=== PATIENT | female | born 1995 | race African-American/Black ===

== ENCOUNTER 2016-05-19 11:11 | Emergency (ER) | payer OTHER ==
[~2016-05-19] VITALS: Ht 165.1 cm; Wt 90.7 kg
[~2016-05-19 11:11] MED LIST: ACID CONTROL150 MG ORAL; ANUSOL HC1 SUPP RECTAL; COLACE100 MG ORAL; METRONIDAZOLE500 MG ORAL; NITROFURANTOIN100 M2 ORAL; RANITIDINE HCL150 MG ORAL; TAMIFLU75 MG ORAL; ZOFRAN4 MG ORAL
[2016-05-19] MEDS ORDERED: NKM (11:25)
[2016-05-19 16:00] VITALS: BP 120/80
[2016-05-19] MEDS ORDERED: KEFLEX500 MG ORAL (16:42)
[2016-05-19 16:45] VITALS: BP 120/80
--- NOTE | 2016-05-19 16:48 | Emergency Room Report ---
History of Present Illness General Chief Complaint: General Complaint Source: Patient Present Illness HPI Patient is a 21-year-old female presented after increased pain and swelling to her right breast. Patient was noted to have a several days of increased pain which are began to the lower aspect of her right breast. The patient any fever. The patient denied any recent trauma or fever. She is denies being . Allergies: Uncoded Allergies: NUTS (Allergy, Unknown, 04/14/15) Patient History Past Medical History: see triage record Last Menstrual Period: on period Reviewed Nursing Documentation: PMH: Agreed, PSxH: Agreed Nursing Documentation-PMH Past Medical History: No History, Except For Hx Cardiac Problems: No Hx Hypertension: No Hx Pacemaker: No Hx Asthma: No Hx COPD: No Hx Diabetes: No Hx Cancer: No Hx Gastrointestinal Problems: Yes - IBS Hx Dialysis: No Hx Neurological Problems: Yes - eplipsy Hx Cerebrovascular Accident: No Hx Seizures: Yes Review of Systems All Other Systems: negative except mentioned in HPI Physical Exam Vital Signs Date Time Temp Pulse Resp B/P Pulse Ox O2 Delivery O2 Flow Rate FiO2 05/19/16 11:21 98.2 54 14 117/81 99 Room Air General Appearance: well appearing, no apparent distress, alert, GCS 15 Head: normocephalic, atraumatic ENT: hearing grossly normal, normal voice Neck: full range of motion, supple Respiratory: no respiratory distress, speaking full sentences Cardiovascular #1: normal inspection, regular rate, rhythm Gastrointestinal: normal inspection, normal bowel sounds, non tender Musculoskeletal: normal inspection, back normal, digits/nails normal, no calf tenderness Neurologic: normal inspection, alert, oriented x3, normal gait Psychiatric: mood/affect normal Skin: other - lesion to lower aspect of right breast. ' Medical Decision Making Diagnostic Impression: Primary Impression: Breast lesion ER Course Patient presented for breast lesion. Differential diagnosis included wasn't limited to abscess, fibrocystic changes, breast cancer, keloid, hidradenitis among others. Because of complexity of patient's case laboratory testing and imaging studies were ordered. The patient noted that not to be . The breast ultrasound was ordered the breast was noted to have a solid-appearing lesion which appeared to require further workup. Patient was given prescription for oral antibiotics. The patient was advised followup with primary care physician for general surgery referral for further evaluation of breast mass.The patient is advised to follow up with primary care doctor in 1-2 days. Patient is advised to return if any worsening condition or if any changes in status that are concerning. Last Vital Signs Date Time Temp Pulse Resp B/P Pulse Ox O2 Delivery O2 Flow Rate FiO2 05/19/16 11:21 98.2 54 14 117/81 99 Room Air Status: unchanged Disposition: HOME, SELF-CARE Condition: Stable Scripts Cephalexin* (KEFLEX*) 500 Mg Capsule 500 MG ORAL Q6H, #28 CAP 0 Refills Prov: Riaz Levin 05/19/16 Referrals: NON PHYSICIAN (PCP) primary care physician Patient Instructions: Breast Tenderness Riaz Levin May 19, 2016 16:48
--- NOTE | 2016-05-19 17:43 | Diagnostic Imaging Report ---
Indication: PAIN, palpable abnormality right breast] Technique: Grayscale and duplex images of palpable 3:00 abnormality right breast Comparison: None Findings: Grayscale and duplex images demonstrate mixed echogenicity lesion of the right breast which measures 16 x 10 x 17 mm. This demonstrates internal hyper vascularity, no definite fluctuance of contents. It contains elements of both increased and decreased echogenicity. Impression: 16 x 10 x 17 millimeter right breast lesion, corresponding to palpable abnormality. This appears to be solid and hypervascular, consistent with a mass. No definite evidence of abscess. Recommend further clinical followup, consider biopsy if clinically indicated Findings discussed by phone with Dr. Levin in the emergency room previously
== END 2016-05-19 16:45 | disposition home or self-care (01) ==
LOC: EMR 11:49
DX: N63 Unspecified lump in breast (principal)
CPT/HCPCS: 81025; 99284

== ENCOUNTER 2016-09-28 16:34 | Emergency (ER) | payer OTHER ==
[~2016-09-28] VITALS: Ht 172.7 cm; Wt 74.8 kg
[~2016-09-28 16:34] MED LIST changes: +KEFLEX500 MG ORAL; +NKM
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
[2016-09-28] MEDS ORDERED: IBUPROFEN600 MG ORAL (17:37)
[2016-09-28] MEDS ORDERED: Acetaminophen 500mg (ES) tab ORAL ONE (17:45)
[2016-09-28 18:06] VITALS: BP 120/80
--- NOTE | 2016-09-29 12:16 | Diagnostic Imaging Report ---
Indication: Pain 3 views of the right knee were obtained. Findings: No acute fracture, malalignment, or joint effusion are identified. Joint space is relatively well-maintained. Bone mineralization is within normal limits for age. There is a well-corticated ossicle at the tibial tuberosity. This is not an acute injury but may reflect an older injury or dystrophic calcium within the lower part of the patellar tendon. Impression: No acute injury
== END 2016-09-28 18:10 | disposition home or self-care (01) ==
LOC: EMR 17:00
DX: S80.01XA Contusion of right knee, initial encounter (principal); V89.2XXA Person injured in unspecified motor-vehicle accident, traffic, initial encounter; Y93.9 Activity, unspecified; Y99.9 Unspecified external cause status; Z91.018 Allergy to other foods; K58.9 Irritable bowel syndrome, unspecified; G40.909 Epilepsy, unspecified, not intractable, without status epilepticus; Z86.69 Personal history of other diseases of the nervous system and sense organs
CPT/HCPCS: 29530; 99283

== ENCOUNTER 2017-07-13 19:00 | Emergency (ER) | payer OTHER ==
[~2017-07-13] VITALS: Ht 165.1 cm; Wt 79.4 kg
[~2017-07-13 19:00] MED LIST changes: +IBUPROFEN600 MG ORAL
[2017-07-13 19:49] VITALS: BP 107/64
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
[2017-07-13] MEDS ORDERED: oxyCODONE HCL/Acetaminophen 5/325mg ORAL ONE (20:00)
[2017-07-13] MEDS ORDERED: IBUPROFEN600 MG ORAL (20:34)
[2017-07-13 21:10] VITALS: BP 108/74
--- NOTE | 2017-07-14 10:44 | Diagnostic Imaging Report ---
Indication: pain Findings: 3 views of the left hand were obtained. Normal alignment is demonstrated. No acute fractures, erosions, or periosteal reaction are seen. Soft tissues are unremarkable. Impression: No acute findings.
--- NOTE | 2017-07-14 10:44 | Diagnostic Imaging Report ---
Indication: Pain Findings: 3 views of the left elbow were obtained. No acute fractures, malalignment, erosions or periostitis are identified. Soft tissues are unremarkable. Impression: No acute injury
--- NOTE | 2017-07-14 10:44 | Diagnostic Imaging Report ---
Indication: Pain Findings: 3 views of the left wrist were obtained. No acute fractures, malalignment, erosions or periostitis are identified. Soft tissues are unremarkable. Impression: No acute findings.
== END 2017-07-13 21:20 | disposition home or self-care (01) ==
LOC: EMR 21:00
DX: S50.12XA Contusion of left forearm, initial encounter (principal); S63.502A Unspecified sprain of left wrist, initial encounter; W22.01XA Walked into wall, initial encounter; Y92.9 Unspecified place or not applicable; Z91.018 Allergy to other foods; F31.9 Bipolar disorder, unspecified; Z86.69 Personal history of other diseases of the nervous system and sense organs
CPT/HCPCS: 29125; 29240; 99284

== ENCOUNTER 2018-01-13 12:27 | Emergency (ER) | payer OTHER ==
[~2018-01-13] VITALS: Ht 167.6 cm; Wt 83.9 kg
[2018-01-13 12:26] VITALS: BP 120/76
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
[2018-01-13] MEDS ORDERED: Methocarbamol 750mg tab ORAL ONE (12:45)
[2018-01-13] MEDS ORDERED: ROBAXIN-750750 MG PO (13:56)
[2018-01-13] MEDS ORDERED: IBUPROFEN600 MG ORAL (13:56)
[2018-01-13 14:05] VITALS: BP 120/76
== END 2018-01-13 14:15 | disposition home or self-care (01) ==
LOC: EDBD 12:27 → EMR 14:00
DX: S29.012A Strain of muscle and tendon of back wall of thorax, initial encounter (principal); S16.1XXA Strain of muscle, fascia and tendon at neck level, initial encounter; V81.3XXA Occupant of railway train or railway vehicle injured in collision with other object, initial encounter; Y92.89 Other specified places as the place of occurrence of the external cause; F43.10 Post-traumatic stress disorder, unspecified; G40.909 Epilepsy, unspecified, not intractable, without status epilepticus
CPT/HCPCS: 81025; 99284

== ENCOUNTER 2018-11-05 14:33 | Emergency (ER) | payer OTHER ==
[~2018-11-05] VITALS: Ht 167.6 cm; Wt 78.9 kg
[~2018-11-05 14:33] MED LIST changes: +ROBAXIN-750750 MG PO
--- NOTE | 2018-11-05 14:45 | NUR ---
ED Nurse Note: Patient walked into ED , patient reports that she noticed cyst inside the left ear since yesterday.
--- NOTE | 2018-11-05 15:14 | Emergency Room Report ---
History of Present Illness General Chief Complaint: Earache Source: Patient Present Illness HPI 23-year-old female with no significant past medical history here complaining of a cyst in left ear that started today and being painful rating the pain 10 out of 10. Without radiation denying tingling and numbness. Patient reports minimal pus drainage. However denies any ear pain. Denies all other URI symptoms. Denies vertigo, dizziness, tinnitus, hearing loss. Denies chest pain , shortness of breath, palpitation, and all other associated symptoms. Allergies: Uncoded Allergies: NUTS (Allergy, Unknown, 04/14/15) Patient History Past Medical History: see triage record Past Surgical History: unable to obtain Pertinent Family History: none Last Menstrual Period: 10/2018 Now: No Immunizations: UTD Reviewed Nursing Documentation: PMH: Agreed; PSxH: Agreed Nursing Documentation-PMH Past Medical History: No History, Except For Hx Hypertension: No Hx Pacemaker: No Hx Asthma: No Hx COPD: No Hx Diabetes: No Hx Cancer: No Hx Gastrointestinal Problems: Yes - IBS Hx Dialysis: No Hx Neurological Problems: Yes - eplipsy Hx Cerebrovascular Accident: No Hx Seizures: Yes - Last one was in 2018 Review of Systems All Other Systems: negative except mentioned in HPI Physical Exam Vital Signs Date Time Temp Pulse Resp B/P (MAP) Pulse Ox O2 Delivery O2 Flow Rate FiO2 11/05/18 14:36 97.5 73 20 103/69 (80) 99 Room Air Sp02 EP Interpretation: reviewed, normal General Appearance: normal inspection, well appearing, no apparent distress, alert, GCS 15 Head: normocephalic, atraumatic Eyes: bilateral eye normal inspection, bilateral eye PERRL ENT: hearing grossly normal, normal pharynx, other - cyst left ear external canal Neck: normal inspection, full range of motion, supple Respiratory: normal inspection, chest non-tender, lungs clear, no rhonchi Cardiovascular #1: normal inspection, normal peripheral pulses, regular rate, rhythm, no edema, no murmur, normal capillary refill Gastrointestinal: normal inspection, non tender, soft Genitourinary: no CVA tenderness Musculoskeletal: normal inspection, back normal Neurologic: normal inspection, alert, oriented x3, responsive Psychiatric: normal inspection, judgement/insight normal, memory normal Skin: normal inspection, warm/dry, normal turgor Lymphatic: normal inspection, no adenopathy Medical Decision Making PA Attestation All my diagnosis and treatment plans were reviewed ad discussed with my supervising physician Dr. Posada Diagnostic Impression: Primary Impression: Cyst of ear canal ER Course 23-year-old female with no significant past medical history here complaining of a cyst in left ear that started today and being painful rating the pain 10 out of 10. Without radiation denying tingling and numbness. Patient reports minimal pus drainage. However denies any ear pain. Denies all other URI symptoms. Denies vertigo, dizziness, tinnitus, hearing loss. Denies chest pain , shortness of breath, palpitation, and all other associated symptoms. Ddx considered but are not limited to: strep pharyngitis, URI, tonsilitis, peritonsillar absacess, influneza, otitis media, otitis externa, cyst in the ear Vital signs: are WNL, pt. is afebrile H&PE are most consistent with: Cyst in the ear canal ORDERS: Augmentin, naproxen ED INTERVENTIONS: None required at this time. DISCHARGE: At this time pt. is stable for d/c to home. Will provide printed patient care instructions, and any necessary prescriptions. Care plan and follow up instructions have been discussed with the patient prior to discharge. Follow-up with ENT Last Vital Signs Date Time Temp Pulse Resp B/P (MAP) Pulse Ox O2 Delivery O2 Flow Rate FiO2 11/05/18 14:36 97.5 73 20 103/69 (80) 99 Room Air Disposition: HOME, SELF-CARE Condition: Stable Scripts Naproxen* (NAPROXEN*) 500 Mg Tablet 500 MG ORAL TWICE A DAY, #30 TAB Prov: Katia Moore 11/05/18 Amoxicillin/Potassium Clav 875-125* (AUGMENTIN 875-125 TABLET*) 1 Each Tablet 1 TAB ORAL TWICE A DAY for 10 Days, #20 TAB Prov: Katia Moore 11/05/18 Referrals: NON PHYSICIAN (PCP) Patient Instructions: Earache Additional Instructions: Take medication as directed avoid irritating the cyst to follow with the ear nose throat doctor. At this point the cyst has not turned into an abscess and the inner ear cyst or abscess formation to be taken care of by ear nose throat doctor Katia Moore Nov 05, 2018 15:14
[2018-11-05] MEDS ORDERED: AUGMENTIN 875-1 EAC1 ORAL (15:16)
[2018-11-05] MEDS ORDERED: NAPROXEN500 M2 ORAL (15:16)
[2018-11-05 15:29] VITALS: BP 103/69
--- NOTE | 2018-11-05 15:30 | NUR ---
ER DISCHARGE NOTE: Patient is cleared to be discharged per [facility], pt is aox4, on room air, with stable vital signs. pt was given dc and prescription instructions, pt was able to verbalize understanding, pt id band removed without complications. pt is able to ambulate with steady gait. pt took all belongings.
== END 2018-11-05 15:28 | disposition home or self-care (01) ==
LOC: EMR 15:07
DX: Q18.1 Preauricular sinus and cyst (principal); Z91.018 Allergy to other foods; G40.909 Epilepsy, unspecified, not intractable, without status epilepticus
CPT/HCPCS: 99282

== ENCOUNTER 2019-05-01 01:26 | Emergency (ER) | payer OTHER ==
[~2019-05-01] VITALS: Ht 167.6 cm; Wt 78.9 kg
[~2019-05-01 01:26] MED LIST changes: +AUGMENTIN 875-1 EAC1 ORAL; +NAPROXEN500 M2 ORAL
[2019-05-01 01:35] VITALS: BP 115/76
--- NOTE | 2019-05-01 01:35 | NUR ---
ED Nurse Note: PT walked in to ED for C/O blurry vission with discomfort to her left eyes with greenish yellowish drainage at times since 5 days ago.
[2019-05-01] MEDS ORDERED: ERYTHROMYCIN3.5 GM LEFT EYE (02:16)
--- NOTE | 2019-05-01 02:16 | Emergency Room Report ---
History of Present Illness General Chief Complaint: Eye Problems Source: Patient Present Illness HPI 23-year-old female who presents withIrritation to left eye with clean discharge discharge started 5 days ago. Patient reported she had some blurriness to the left eye which made her come to the emergency room. She denies any change in vision at this time. She does note that she recently traveled to [place]. She denies any sexually-transmitted infections or recent illnesses. She denies any cough, coryza, rashes. Patient has not tried any medications for this. Patient does not wear glasses or contacts. Allergies: Uncoded Allergies: NUTS (Allergy, Unknown, 04/14/15) Patient History Last Menstrual Period: 04/24/19 Now: No : 0 Para: 0 Nursing Documentation-[facility] Past Medical History: No History, Except For Hx Cardiac Problems: No - seizure Hx Hypertension: No Hx Pacemaker: No Hx Asthma: No Hx COPD: No Hx Diabetes: No Hx Cancer: No Hx Gastrointestinal Problems: Yes - IBS Hx Dialysis: No Hx Neurological Problems: Yes - eplipsy Hx Cerebrovascular Accident: No Hx Seizures: Yes - Last one was in 2018 Review of Systems Constitutional: Denies: chills, fever Eye: Reports: eye pain, discharge Respiratory: Denies: cough, shortness of breath Cardiovascular: Denies: chest pain, palpitations Gastrointestinal: Denies: diarrhea, vomiting Genitourinary: Denies: hematuria, pain Musculoskeletal: Denies: joint swelling Skin: Denies: rash, lesions Neurological: Denies: headache, dizziness Physical Exam Vital Signs Date Time Temp Pulse Resp B/P (MAP) Pulse Ox O2 Delivery O2 Flow Rate FiO2 05/01/19 01:31 97.5 65 16 115/76 (89) 98 Room Air Sp02 EP Interpretation: reviewed General Appearance: well appearing, no apparent distress, non-toxic Head: normocephalic, atraumatic Eyes: right eye normal inspection - Left eye erythematous, mild discharge medially; bilateral eye EOMI ENT: hearing grossly normal, EOM grossly intact, moist mucus membranes Neck: supple Respiratory: lungs clear, normal breath sounds, no respiratory distress, speaking full sentences Cardiovascular #1: regular rate, rhythm, normal capillary refill Cardiovascular #2: 2+ radial (R), 2+ radial (L) Gastrointestinal: soft, non-distended Rectal: deferred Musculoskeletal: moves extm spontaneously, no lower extremity edema Neurologic: grossly normal Psychiatric: mood/affect normal Skin: warm/dry, normal turgor Medical Decision Making Diagnostic Impression: Primary Impression: Conjunctivitis, left eye ER Course 23 female presenting with left eye discharge. Found to have left eye erythematous. Extraocular movements intact pupils equal and reactive vision exam 20/25 OD, 20/30 OS, 20/30 OU,, Patient's visual exam within normal limits. Patient will be treated for bacterial conjunctivitis as she has discharge and erythema for greater than 5 days. Given patient follow-up with primary and eye doctor. Patient given warning signs and when to return. Last Vital Signs Date Time Temp Pulse Resp B/P (MAP) Pulse Ox O2 Delivery O2 Flow Rate FiO2 05/01/19 01:35 97.6 68 16 115/76 98 Room Air Disposition: HOME, SELF-CARE Condition: Stable Scripts Erythromycin Base (ERYTHROMYCIN*) 3.5 Gm Oint...g. 1 APPLIC LEFT EYE QID for 10 Days, #3.5 GM 0 Refills Prov: Mario Sewell M.D. 05/01/19 [address]errals: [facility] Patient Instructions: Bacterial Conjunctivitis, [id number] Additional Instructions: Follow-up with eye doctor in 2 to 3 days for reevaluation or clinic listed above Mario Sewell M.D. May 01, 2019 02:16
[2019-05-01 02:25] VITALS: BP 120/73
--- NOTE | 2019-05-01 02:25 | NUR ---
ER DISCHARGE NOTE: Patient is cleared to be discharged per ERMD, pt is aox4, on room air, with stable vital signs. pt was given dc and prescription instructions, pt was able to verbalize understanding, pt id band removed without complications. pt is able to ambulate with steady gait. pt took all belongings.
== END 2019-05-01 02:20 | disposition home or self-care (01) ==
LOC: EMR 02:20
DX: H10.9 Unspecified conjunctivitis (principal); G40.909 Epilepsy, unspecified, not intractable, without status epilepticus; Z91.018 Allergy to other foods
CPT/HCPCS: 99282